=== PATIENT | male | born 1970 | race Caucasian/White ===

== ENCOUNTER 2019-05-10 05:31 | Outpatient (CLI) | payer BC ==
[~2019-05-10] VITALS: Ht 180 cm; Wt 102.0 kg
[2019-05-10] MEDS ORDERED: LITH150C PO (09:50)
[2019-05-10] MEDS ORDERED: NF-LAMO200 PO (09:50)
== END 2019-05-10 10:02 ==
LOC: PREOP 05:31
PROVIDERS: ATTEND Otolaryngology Otolaryngology/Facial Plastic Surgery
DX: Z01.818 Encounter for other preprocedural examination (principal)

== ENCOUNTER 2019-05-14 07:15 | Day surgery (SDC) | payer BC ==
[~2019-05-14] VITALS: Ht 180 cm; Wt 100.0 kg
[2019-05-14] VITALS (9 sets, daily range): BP systolic 114–149; BP diastolic 62–99
[~2019-05-14 07:15] MED LIST: LITH150C PO; NF-LAMO200 PO
--- NOTE | 2019-05-14 07:18 | Progress Note-Pre Operative ---
Pre-Operative Progress Note H&P Reviewed The H&P was reviewed, patient examined and no changes noted. Date Seen by Provider: May 14, 2019 Time Seen by Provider: 07:00 Date H&P Reviewed: May 14, 2019 Time H&P Reviewed: 07:00 Pre-Operative Diagnosis: Left Cervical ADenopathy MICKI RING MD May 14, 2019 07:18 POS
[2019-05-14] MEDS ORDERED: LACTATED RINGERS 1,000 ML IV PRN (07:35)
[2019-05-14] MEDS ORDERED: LIDOCAINE/EPI 1%-1:100,000 (XYLOCAINE) 20ML ONE (07:36)
[2019-05-14] MEDS ORDERED: MUPIROCIN 2% OINT 22 GM (BACTROBAN) TUBE ONE (07:36)
[2019-05-14] MEDS ORDERED: ONDANSETRON 4 MG/2 ML (SDV) Z0FRAN ONE (07:38)
[2019-05-14] MEDS ORDERED: fentaNYL INJECTION 100 MCG/2 ML AMP ONE (07:38)
[2019-05-14] MEDS ORDERED: LIDOCAINE PF 2% 5 ML (XYLOCAINE) VIAL ONE (07:38)
[2019-05-14] MEDS ORDERED: SEVOFLURANE (ULTANE) 15 ML INHAL SOLN ONE (07:38)
[2019-05-14] MEDS ORDERED: DEXAMETHASONE 10 MG/ML (DECADRON) 1 ML VIAL ONE (07:38)
[2019-05-14] MEDS ORDERED: NEOSTIGMINE 3 MG/3 ML VIAL ONE (07:38)
[2019-05-14] MEDS ORDERED: ROCURONIUM 10 MG/ML 5 ML SYRINGE IV ONE (07:38)
[2019-05-14] MEDS ORDERED: MIDAZOLAM 2 MG/2 ML (VERSED) VIAL ONE (07:38)
[2019-05-14] MEDS ORDERED: proPOfol 200 MG/20 ML (DIPRIVAN) VIAL IV ONE (07:38)
[2019-05-14] MEDS ORDERED: GLYCOPYRROLATE 0.2 MG/ML (ROBINUL) 2 ML VIAL ONE (07:38)
--- NOTE | 2019-05-14 08:30 | Progress Note-Post Operative ---
Post-Operative Progess Note Surgeon (s)/Electrical Design Technician (s) Surgeon MICKI RING MD Electrical Design Technician n/a Pre-Operative Diagnosis Left Cervical ADenopathy Post-Operative Diagnosis same Post-Op Procedure Note Date of Procedure: May 14, 2019 Name of Procedure Performed: Excisional Biopsy of Left Cervical Lymph Node Description & Findings Description and Findings: n/a Anesthesia Type get Estimated Blood Loss minimal Packing none. Specimen(s) collected/removed left cervical lymph node for frozen and fresh to be treated as a lymphoma MICKI RING MD May 14, 2019 08:30 POS
[2019-05-14] MEDS ORDERED: ACETAMINOPHEN 325 MG TABLET PO PRN (08:45)
[2019-05-14] MEDS ORDERED: HYDROcodone/APAP 5 MG/325 MG (LORTAB) TAB PO PRN (08:45)
[2019-05-14] MEDS ORDERED: morphine INJ 10 MG/ML 1ML (SYR OR VIAL) IVP ONE (09:00)
[2019-05-14] MEDS ORDERED: ONDANSETRON 4 MG/2 ML (SDV) Z0FRAN IVP PRN (09:00)
[2019-05-14] MEDS ORDERED: HYDROmorphone 2 MG/ML VIAL (DILAUDID) IV ONE (09:00)
[2019-05-14] MEDS ORDERED: HYDR-3812 PO (09:48)
--- NOTE | 2019-05-14 12:40 | Anesthesia-General Post-Op ---
General Patient Condition Mental Status/LOC: Same as Preop Cardiovascular: Satisfactory Nausea/Vomiting: Absent Respiratory: Satisfactory Pain: Controlled Complications: Absent Post Op Complications Complications None Follow Up Care/Instructions Patient Instructions None needed. Anesthesia/Patient Condition Patient Condition Patient was seen after the procedure and he was doing well, no complaints, stable vital signs, no apparent adverse anesthesia problems. PATSY OAKLEY DO May 14, 2019 12:40 POS
--- OUTSIDE RECORDS SUMMARY | 2019-06-09 08:31 | XMS REPORT | Clinical Summary ---
Author Author Admin, Bi CHAN Organization [facility] Address Unknown Phone Unavailable Allergies, Adverse Reactions, Alerts Allergy Name Reaction Description Start Date Severity Status Pr ovider Allergies Unknown Conditions or Problems Problem Name Problem Code Onset Date Status Entry Date Provider Comment Standard Description Annotate Encounter for preprocedural cardiovascular examination V72.81 Active Юлия Bullard Preoperative cardiovascular exam ination Medication List Medication Instructions Start Date Stop Date Generic Name NDC Status Provider Patient Instruction Drug Treatment Unknown - unknown Procedures Code Procedure Name Date Entry Date Standard Desc ription CPT-99776 EKG Trac and Interp - XRAY USE ONLY 0 9:00:25 COGNOS ADMINISTRATOR CPT-53789 Chest, 2 views 09:00:25 COGNOS ADMINISTRATOR
--- OUTSIDE RECORDS SUMMARY | 2019-06-09 08:31 | XMS REPORT | Clinical Summary ---
Author Author Admin, Bi CHAN Organization [facility] Address Unknown Phone Unavailable Allergies, Adverse Reactions, [...] Name Date Entry Date Standard Desc ription CPT-77081 EKG Trac and Interp - XRAY USE ONLY 0 9:00:25 LAB REP CPT-47497 Chest, 2 views 09:00:25 LAB REP
--- OUTSIDE RECORDS SUMMARY | 2019-06-09 08:31 | XMS REPORT | Clinical Summary ---
Author Author Admin, Bi CHAN Organization [facility] [place] Address Unknown Phone Unavailable Allergies, Adverse Reactions, [...] Name Date Entry Date Standard Desc ription CPT-39636 EKG Trac and Interp - XRAY USE ONLY 0 9:00:25 SALES AND MARKETING MANAGER CPT-80778 Chest, 2 views 09:00:25 SALES AND MARKETING MANAGER
--- OUTSIDE RECORDS SUMMARY | 2019-06-09 08:32 | XMS REPORT | Clinical Summary ---
Author Author Admin, Bi CHAN Organization [facility] Address Unknown Phone Unavailable Allergies, Adverse Reactions, [...] Name Date Entry Date Standard Desc ription CPT-58800 EKG Trac and Interp - XRAY USE ONLY 0 9:00:25 FINE JEWELRY SALES ASSOCIATE CPT-24566 Chest, 2 views 09:00:25 FINE JEWELRY SALES ASSOCIATE
--- OUTSIDE RECORDS SUMMARY | 2019-06-09 08:32 | XMS REPORT | Clinical Summary ---
Author Author Admin, Bi CHAN [facility] Address Unknown Phone Unavailable Allergies, Adverse Reactions, [...]
--- OUTSIDE RECORDS SUMMARY | 2019-06-09 08:32 | XMS REPORT | Continuity of Care Document ---
Author Organization Unknown Address Unknown Phone Unavailable Allergies Active Description Code Type Severity Reaction Onset Reported/Identified Relationship to Patient Clinical Status Yes No Known Drug Allergies [id number] Drug Allergy Unknown N/A 05/10/2019 Medications There is no data. Problems Date Dx Coded Attending Type Code Diagnosis Diagnosed By 04/30/2019 Z01.810 En counter for preprocedural cardiovascular examination 05/10/2019 MICKI RING MD Ot Z01.818 ENCOUNTER FOR OTHER PREPROCEDURAL EXAMIN 05/12/2019 MICKI RING MD Ot Z01.818 ENCOUNTER FOR OTHER PREPROCEDURAL EXAMIN 05/14/2019 MICKI RING MD Ot C85.81 OTH TYPES OF NON-HODG LYMPH, NODES OF 05/14/2019 MICKI RING MD Ot E66 .9 OBESITY, UNSPECIFIED 05/14/2019 MICKI RING MD Ot F41 .9 ANXIETY DISORDER, UNSPECIFIED 05/14/2019 MICKI RING MD Ot Z68.31 BODY MASS INDEX (BMI) 31.0-31.9, ADULT 05/14/2019 MICKI RING MD Ot Z79.899 OTHER SPACE CONTROLLER (CURRENT) DRUG THERAPY 05/19/2019 MICKI RING MD Ot C85.81 OTH TYPES OF NON-HODG LYMPH, NODES OF 05/19/2019 MICKI RING MD Ot E66 .9 OBESITY, UNSPECIFIED 05/19/2019 MICKI RING MD Ot F41 .9 ANXIETY DISORDER, UNSPECIFIED 05/19/2019 MICKI RING MD Ot Z68.31 BODY MASS INDEX (BMI) 31.0-31.9, ADULT 05/19/2019 MICKI RING MD Ot Z79.899 OTHER SPACE CONTROLLER (CURRENT) DRUG THERAPY 05/19/2019 MICKI RING MD Ot C85.81 OTH TYPES OF NON-HODG LYMPH, NODES OF 05/19/2019 MICKI RING MD Ot E66 .9 OBESITY, UNSPECIFIED 05/19/2019 MICKI RING MD Ot F41 .9 ANXIETY DISORDER, UNSPECIFIED 05/19/2019 MICKI RING MD Ot Z68.31 BODY MASS INDEX (BMI) 31.0-31.9, ADULT 05/19/2019 MICKI RING MD Ot Z79.899 OTHER CUSTODIAL (CURRENT) DRUG THERAPY Procedures There is no data. Results Test Result Range Methicillin resistant Staphylococcus aur eus (MRSA) screening culture - 05/14/19 07:25 Methicillin resistant Staphylococcus aureus (MRSA) scr eening culture NG NRG Encounters ACCT No. Visit Date/Time Discharge Status Pt. Type Provider Facility Loc./Unit Complaint [id number] 05/10/2019 08:51:00 [facility] Unknown [id number] 05/14/2019 07:15:00 019 10:50:00 DIS Outpatient MICKI RING MD [facility] SDC LEFT CERVICAL LYMPH NOD E [id number] 05/10/2019 05:31:00 019 10:02:00 DIS Outpatient MICKI RING MD [facility] PREOP LEFT CERVICAL LYMPH NOD E
== END 2019-05-14 10:50 | disposition home or self-care (01) ==
LOC: SDC 07:15
PROVIDERS: ATTEND Otolaryngology Otolaryngology/Facial Plastic Surgery
DX: C85.81 Other specified types of non-Hodgkin lymphoma, lymph nodes of head, face, and neck (principal); E66.9 Obesity, unspecified; F41.9 Anxiety disorder, unspecified; Z68.31 Body mass index [BMI] 31.0-31.9, adult; Z79.899 Other long term (current) drug therapy
CPT/HCPCS: 87081; 88184; 88185; 88307; 88331; 88341; 88342; 88360